=== PATIENT | male | born 2000 | race Asian ===

== ENCOUNTER 2023-12-10 11:33 | Emergency (ER) | payer BC ==
[2023-12-10 12:42] LABS: #Basophils 0.09 10x3/uL (0.0-0.2); #Eosinphils 0.31 10x3/uL (0.0-0.5); #Monocytes 0.41 10x3/uL (0.0-1.1); #Neutrophils 6.11 10x3/uL (1.5-8.4); %Eosinophils 3.6 % (0.0-6.0); %Lymphocytes 20.4 % (18.0-47.0); %Monocytes 4.7 % (0.0-10.0); %Neutrophils 70.1 % (40.0-75.0); Hematocrit 42.7 % (38.8-50.0); Hemoglobin 14.5 g/dL (13.5-17.5); Mean Corpuscular Hemoglobin 27.7 pg (27.0-33.0); Mean Corpuscular Volume 81.5 fL (81.2-95.1); Mean Platelet Volume 10.3 fL (7.4-10.4); Platelet Count 218 10x3/uL (150-450); RBC Distribution Width 15.3 % (11.5-14.5); Red Blood Cell (RBC) Count 5.24 10x6/uL (4.32-5.72); White Blood Cell (WBC) Count 8.7 10x3/uL (3.5-10.5)
[2023-12-10 12:58] LABS: ALT (SGPT) 11 U/L (8-55); AST (SGOT) 16 U/L (5-34); Acetaminophen Less than 10 mcg/mL (10.0-30.0); Albumin 4.2 g/dL (3.5-5.0); Alcohol Less than 10.0 mg/dL (Less than 10); Alkaline Phosphatase 59 U/L (40-110); Anion Gap 11 mmol/L (10-20); BUN (Urea Nitrogen) 12 mg/dL (8.9-20.6); Bilirubin, Total 0.5 mg/dL (0.2-1.2); Calc. Creatinine Clearance 0 mL/min (70-130); Calcium 9.2 mg/dL (7.8-10.44); Carbon Dioxide 24 mmol/L (22-29); Chloride 107 mmol/L (98-107); Estimated GFR 95; Globulin 2.7 g/dL (2.4-3.5); Glucose 99 mg/dL (70-105); Potassium 4.2 mmol/L (3.5-5.1); Protein, Total 6.9 g/dL (6.0-8.3); Salicylate Less than 8.0 mg/dL (15.0-30.0); Sodium 138 mmol/L (136-145)
[2023-12-10 14:27] LABS: Bilirubin Neg (Negative); Blood, Urine 25 (Negative); Clarity Clear (Clear); Glucose, Urine (Dipstick) Normal (Negative); Ketone, Urine Negative (Negative); Leukocyte Negative (Negative); Nitrite Negative (Negative); Protein, Urine (Dipstick) Negative (Neg-Trace); Urobilinogen Normal mg/dL (Less than 2)
[2023-12-10 14:41] LABS: Amphetamine Not Detected (NotDetected); Barbiturates Screen Not Detected (NotDetected); Benzodiazepine Screen Not Detected (NotDetected); Cocaine Metabolite Screen Not Detected (NotDetected); Methadone Not Detected (NotDetected); Methamphetamine Not Detected (NotDetected); Opiate Screen Not Detected (NotDetected); Oxycodone Screen Not Detected (NotDetected); Phencyclidine (PCP) Not Detected (NotDetected); THC/Cannabinoid Screen Not Detected (NotDetected); Tricyclic Screen Not Detected (NotDetected)
[2023-12-10 14:56] LABS: RBC/HPF 0-3 HPF (0-3)
[2023-12-10 14:57] LABS: Bacteria/HPF Rare-Few HPF (None Seen); CAUTI Indications for Culture Pelvic or flank pain; Squamous Epithelial 0-3 HPF (0-3); WBC/HPF 0-3 HPF (0-3)
[2023-12-10 14:58] LABS: Urine Culture Reflex No No
== END 2023-12-10 21:05 | disposition home or self-care (01) ==
LOC: CSHERS 11:33
DX: F32.A Depression, unspecified (principal)
CPT/HCPCS: 80053; 80306; 80307; 81001; 85025; 99284